=== PATIENT | female | born 1990 | race Caucasian/White ===

== ENCOUNTER → 2016-12-28 | Outpatient (CLI) | payer OTHER ==
--- NOTE | 2016-12-28 09:48 | REP ---
OBSTETRIC SONOGRAPHY: HISTORY: Supervision of for anatomy. FINDINGS: Scanning through the gravid uterus demonstrates a viable single intrauterine gestation in a variable lie. motion is observed and heart rate is recorder 155 beats per minute. A posterior grade 0 placenta is seen without evidence of previa or abruption. Amniotic fluid is subjectively normal. Closed cervical length measures 5.6 cm, viewed transabdominally. No extrauterine abnormalities observed. No anomaly is seen. The following anatomic structures are identified and felt to be sonographically unremarkable: cranium, choroid plexus, cavum, cerebellum and posterior fossa, face and profile, lungs, four-chamber heart with left and right ventricular outflow tract views, diaphragm, left-sided stomach, abdominal wall cord insertion, three-vessel umbilical cord, kidneys and bladder, spine, upper and lower extremities. Biometry Chart: BPD 4.8 cm = 20 weeks 3 days HC 18.1 cm = 20 weeks 3 days AC 16.8 cm = 21 weeks 5 days FL 3.3 cm = 20 weeks 1 day HL 3.3 cm = 21 weeks 0 days HC/AC ratio normal 1.08. Cephalic index normal 0.73. Estimated weight 389 grams, 0 pounds 13 ounces, 32nd percentile for 21 weeks 3 days. IMPRESSION: Viable single intrauterine gestation at 21 weeks 1 day by today's composite sonographic criteria. BLESSING by today's sonography May 09, 2017. No anomalies seen. Signed by Fermín Payne MD 12/28/2016 03:36 P
== END ==
LOC: M RAD 07:53
PROVIDERS: ATTEND Nurse Practitioner Women's Health
DX: Z36 Encounter for antenatal screening of mother (principal); Z3A.21 21 weeks gestation of pregnancy

== ENCOUNTER → 2017-02-25 | Outpatient (CLI) | payer OTHER ==
--- NOTE | 2017-02-25 18:45 | REP ---
Limited obstetric sonography: History: Low-lying placenta. Placental tip location. Comparison study December 28, 2016. Findings: A viable single intrauterine gestation is seen in a cephalic lie. Close cervical length is 4.8 cm measured transvaginally. No funneling is seen. Placenta inferior margin is 5.7 cm from the internal cervical os. heart rate is recorded at 144 beats per minute. S/D ratio in the umbilical cord artery by Doppler is 2.4 cm. Signed by Fermín Payne MD 02/25/2017 07:00 P
== END ==
LOC: M RAD 13:58
PROVIDERS: ATTEND Nurse Practitioner Women's Health
DX: O44.43 Low lying placenta NOS or without hemorrhage, third trimester (principal); Z3A.00 Weeks of gestation of pregnancy not specified

== ENCOUNTER → 2017-04-15 | Outpatient (CLI) | payer OTHER ==
[~2017-04-15] MED LIST: COLA100C5 PO; IBUP-1114 PO; OXYC1TAB23 PO; PERC5TAB12 PO; PRENTAB55 PO
--- NOTE | 2017-04-15 15:27 | REP ---
Obstetric ultrasound for size, date discrepancy, third trimester per: There is a single intrauterine gestation in a vertex presentation. There is movement and cardiac activity. heart rate is 129 beats per minute. The placenta is posterior. There is no placenta previa or abruptio. Placenta is grade 1 maturity. The amniotic fluid volume subjectively is normal. The amniotic fluid index is 15.1 pounds 7.5 - 24.5). The cervix is 3.5 cm length. Maternal adnexa and cul-de-sac are unremarkable. By today's ultrasound the gestational age is 37 weeks 4 days with an BLESSING of 05/02/2017. According to the first ultrasound during this gestation the gestational age is 36 weeks 4 days and BLESSING of 05/09/2017. By LMP and gestational age is 36-week 6 days with an BLESSING of 2016. weight is 3321 grams (7 pounds, 5 ounces). This is the 70th percentile for 36 weeks 6 days. The Doppler SD ratio of the umbilical artery is 2.27. Resistive index is 0.56. The diastolic flow velocities 8.1 cm/sec. Resistive index and diastolic flow velocity are slightly below the normal range. Signed by J Luis Figueroa MD 04/15/2017 03:19 P
== END ==
LOC: M RAD 12:32
PROVIDERS: ATTEND Advanced Practice Midwife
DX: O26.843 Uterine size-date discrepancy, third trimester (principal); O34.211 Maternal care for low transverse scar from previous cesarean delivery; Z3A.37 37 weeks gestation of pregnancy

== ENCOUNTER → 2017-04-21 | Outpatient (REF) | payer OTHER | LOC: M LAB REF 17:16 | PROVIDERS: ATTEND Advanced Practice Midwife | DX: Z34.83 Encounter for supervision of other normal pregnancy, third trimester (principal) ==

== ENCOUNTER → 2017-04-29 | Outpatient (CLI) | payer OTHER ==
--- NOTE | 2017-04-29 09:57 | REP ---
Obstetric ultrasound for size, date discrepancy: There is a single intrauterine gestation in a vertex presentation. There is movement and cardiac activity, the heart rate is 153 beats per minute. The placenta is posterior and fundal without placenta previa or abruptio. The placenta is grade II. The amniotic fluid volume subjectively is normal. The maternal adnexa and cul-de-sac are unremarkable. By the study today the gestational age is 38 weeks 0 days with an BLESSING of 05/13/2017. By the first ultrasound gestational age is 38 weeks 4 days and by LMP 38 weeks 6 days. weight is 3109 grams (6 pounds, 13 ounces). This is the 33rd percentile for 38 weeks 6 days. Umbilical artery Doppler assessment: SD ratio 2.09 (1.6 - 2.6) Resistive index 0.52 Diastolic flow velocity 13.8 cm/sec. Signed by J Luis Figueroa MD 04/29/2017 09:48 A
== END ==
LOC: M RAD 09:11
PROVIDERS: ATTEND Advanced Practice Midwife
DX: O26.843 Uterine size-date discrepancy, third trimester (principal); Z3A.38 38 weeks gestation of pregnancy

== ENCOUNTER 2017-05-11 06:18 | Inpatient (IN) | payer OTHER ==
[~2017-05-11] VITALS: Ht 170.2 cm; Wt 97.1 kg
[~2017-05-11 06:18] MED LIST changes: -COLA100C5 PO; -IBUP-1114 PO; -OXYC1TAB23 PO; -PERC5TAB12 PO
[2017-05-11] MEDS ORDERED: LR 800 ML IV ONE (07:00)
[2017-05-11] MEDS ORDERED: LR 1,000 ML IV SCH ×3 (07:00→10:15)
[2017-05-11] MEDS ORDERED: BICITRA 30ML SOLN UDC PO ONE (07:00)
[2017-05-11 07:42] LABS: MEAN CORPUSCULAR HEMOGLOBIN 29.4 pg (27.0-33.0); MEAN CORPUSCULAR HGB CONC 34.4 g/dl (32.0-36.5); MEAN CORPUSCULAR VOLUME 85.6 fl (80.0-96.0); RED CELL DISTRIBUTION WIDTH 13.8 % (11.5-14.5); WHITE BLOOD COUNT 8.4 K/mm3 (4.0-10.0)
[2017-05-11] MEDS ORDERED: ONDANSETRON 4MG/2ML VIAL (J2405) IV PRN ×3 (08:52→10:15)
[2017-05-11] MEDS ORDERED: NALBUPHINE HCL 10 MG/ML AMP (J2300) IV PRN (08:52)
[2017-05-11] MEDS ORDERED: METOCLOPRAMIDE INJ 10MG/2ML VIAL (J2765) IV PRN (08:52)
[2017-05-11] MEDS ORDERED: NALOXONE INJ 0.4 MG/1 ML VIAL (J2310) IV PRN ×2 (08:52)
[2017-05-11] MEDS: PRENATAL VITAMINS CHEWABLE TABLET PO SCH (09:00)
[2017-05-11] MEDS ORDERED: OXYTOCIN INJ 10 UNITS/ML VIAL (J2590) As Ordered ONE (09:03)
[2017-05-11] MEDS ORDERED: ePHEDrine SULFATE 25 MG/5 ML(5MG/ML) SYRINGE As Ordered ONE (09:03)
[2017-05-11] MEDS ORDERED: MORPHINE PRES-FREE INJ 10 MG/10 ML VIAL (J2274) As Ordered ONE (09:03)
[2017-05-11] MEDS ORDERED: PHENYLephrine HCL 500 MCG/5 ML (100MCG/ML) SYRINGE (J2370) As Ordered ONE (09:03)
[2017-05-11] MEDS ORDERED: ONDANSETRON 4MG/2ML VIAL (J2405) As Ordered ONE (09:03)
[2017-05-11] MEDS ORDERED: KETOROLAC 60 MG/2 ML VIAL (J1885) As Ordered ONE (09:03)
[2017-05-11] MEDS ORDERED: dexameTHASONE 4 MG/ML 1ML VIAL (J1100) As Ordered ONE (09:39)
[2017-05-11] MEDS ORDERED: RHOGAM 300 MCG (1500 IU) INJ (J2790) IM SCH (10:00)
[2017-05-11] MEDS ORDERED: OXYTOCIN DRIP 30 UNITS in APPROPRIATE DILUENT 1 EA IV ONE (10:00)
[2017-05-11] MEDS ORDERED: MEASLES,MUMPS,RUBELLA VACCINE INJ (MMR-II) (90707) SC SCH (10:00)
[2017-05-11] MEDS ORDERED: DOCUSATE SODIUM 100 MG CAP PO PRN (10:00)
[2017-05-11] MEDS ORDERED: MEPERIDINE INJ 25 MG/ML VIAL (J2175) IV PRN (10:15)
[2017-05-11] MEDS ORDERED: fentaNYL 100 MCG/2 ML INJECTION (J3010) IV PRN (10:15)
--- NOTE | 2017-05-11 10:19 | RO ---
DATE OF PROCEDURE: 05/11/2017 PREPROCEDURE DIAGNOSIS: 39 weeks gestation, prior section times one. POSTPROCEDURE DIAGNOSIS: 39 weeks gestation, prior section times one. PROCEDURE: Elective repeat low transverse section. SURGEON: Dr. Ric Wilson. FOREST ECONOMIST: Vijaya Lindsay. ANESTHESIA: Spinal. ESTIMATED BLOOD LOSS: 600 mL. URINE OUTPUT: 200 mL. FLUID: 1400 mL LR. FINDINGS: 8 pound 15 ounce male infant, 4040 grams, 9 and 9, vertex position. Normal uterine, fallopian tubes and ovaries. OPERATIVE SUMMARY: The patient was taken to the operating room where spinal anesthesia was induced. She was prepped and draped in a sterile fashion in the supine position. Blanchard catheter was placed. A Pfannenstiel skin incision was made with a scalpel and carried through to the fascia. The fascia extended bilaterally and dissected off the rectus muscles. The peritoneal cavity was entered. A bladder flap was created. Curvilinear incision was made in the lower uterine segment until clear fluid was noted. This was extended manually. The infant was delivered in the vertex position without difficulty. The shoulders then delivered with ease. The cried spontaneously. The cord was doubly clamped and cut. The was handed off to the awaiting nurses. The placenta was expressed. The uterus was exteriorized and cleared of clots and debris. Uterine incision was closed with #0 Vicryl in a running locked fashion. A second imbricating layer of #0 Vicryl was placed. The uterus was placed back in the abdominal cavity. The peritoneum was closed with #2-0 Vicryl in a running fashion. The fascia was closed with #0 Vicryl in a running fashion. The deep layer was irrigated and closed with #3-0 Chromic. The skin was closed with #4-0 Monocryl subcuticular sutures. Sponge, instrument, needle counts were correct.
[2017-05-11 11:30] VITALS: BP 125/73
[2017-05-11 11:55] LABS: HBSAG L&D NEGATIVE (NEGATIVE)
[2017-05-11 12:00] VITALS: BP 112/65
[2017-05-11 13:00] VITALS: BP 120/56
[2017-05-11 14:00] VITALS: BP 109/64
[2017-05-11] MEDS: KETOROLAC 30 MG/ML VIAL (J1885) IV SCH ×2 (15:28→21:11)
[2017-05-11 17:52] VITALS: BP 127/71
[2017-05-12] MEDS: KETOROLAC 30 MG/ML VIAL (J1885) IV SCH ×2 (03:13→08:02)
[2017-05-12 05:37] VITALS: BP 136/80
[2017-05-12 07:20] LABS: MEAN CORPUSCULAR HEMOGLOBIN 29.6 pg (27.0-33.0); MEAN CORPUSCULAR HGB CONC 34.3 g/dl (32.0-36.5); MEAN CORPUSCULAR VOLUME 86.4 fl (80.0-96.0); RED CELL DISTRIBUTION WIDTH 14.1 % (11.5-14.5); WHITE BLOOD COUNT 8.2 K/mm3 (4.0-10.0)
[2017-05-12] MEDS ORDERED: PERC5TAB12 PO (07:39)
[2017-05-12] MEDS: PRENATAL VITAMINS CHEWABLE TABLET PO SCH (08:02)
[2017-05-12 10:03] VITALS: BP 123/66
[2017-05-12] MEDS: PERCOCET 5MG/325MG TAB PO PRN ×3 (13:34→23:11)
[2017-05-12 14:34] VITALS: BP 128/70
[2017-05-12] MEDS: IBUPROFEN 800 MG TAB PO SCH (17:00)
[2017-05-12 18:00] VITALS: BP 111/58
[2017-05-12 23:52] VITALS: BP 132/86
[2017-05-13] MEDS: IBUPROFEN 800 MG TAB PO SCH ×2 (01:05→08:56)
[2017-05-13 05:50] VITALS: BP 142/85
[2017-05-13] MEDS ORDERED: OXYC1TAB23 PO (08:07)
[2017-05-13] MEDS ORDERED: COLA100C5 PO (08:07)
[2017-05-13] MEDS ORDERED: IBUP-1114 PO (08:07)
[2017-05-13] MEDS: PERCOCET 5MG/325MG TAB PO PRN (08:11)
[2017-05-13] MEDS: PRENATAL VITAMINS CHEWABLE TABLET PO SCH (08:56)
--- NOTE | 2017-05-13 10:11 | DSES ---
DATE OF ADMISSION: 05/11/2017 DATE OF DISCHARGE: 05/13/2017 HISTORY: A 26-year-old 2, para 1 female 39 and 0/7 weeks gestation presents for elective repeat section. She has had one prior section. HOSPITAL COURSE: On 05/11/2017 patient underwent repeat low transverse section for a 8 pound 15 ounce . There were no complications. Her postoperative course was unremarkable. She adequately returned to bladder and bowel function. She is deemed stable for discharge on postoperative day #2. ADMISSION DIAGNOSIS: 39 weeks. Prior section. DISCHARGE DIAGNOSIS: Delivered. PROCEDURE: Repeat low transverse section. DISPOSITION: The patient will followup with Dr. Wilson in 2 weeks. Instructions were reviewed.
== END 2017-05-13 11:35 | disposition home or self-care (01) | DRG 766 ==
LOC: M LDI 06:18 → M OBS 11:32
PROVIDERS: ADMIT Specialist; ATTEND Specialist
PROC: 10D00Z1 Extraction of Products of Conception, Low, Open Approach (ICD-10-PCS; principal; 2017-05-11 08:30)
DX: O34.211 Maternal care for low transverse scar from previous cesarean delivery (principal); Z37.0 Single live birth; Z3A.39 39 weeks gestation of pregnancy

== ENCOUNTER → 2017-08-09 | Outpatient (REF) | payer OTHER ==
[~2017-08-09] MED LIST changes: +COLA100C5 PO; +IBUP-1114 PO; +OXYC1TAB23 PO; +PERC5TAB12 PO
== END ==
LOC: M SFHCLERA 16:21
PROVIDERS: ATTEND Nurse Practitioner Family
DX: R50.9 Fever, unspecified (principal)

== ENCOUNTER → 2018-04-20 | Outpatient (REF) | payer OTHER ==
[2018-04-20 14:54] LABS: CHLAMYDIA DNA AMPLIFICATION NEGATIVE (NEGATIVE); GC DNA AMPLIFICATION NEGATIVE (NEGATIVE)
== END ==
LOC: M LAB REF 12:49
DX: Z11.3 Encounter for screening for infections with a predominantly sexual mode of transmission (principal)
CPT/HCPCS: 87591